=== PATIENT | female | born 1985 | race Two or more races ===

== ENCOUNTER 2016-05-01 12:31 | Emergency (ER) | payer MEDICAID ==
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
[2016-05-01] MEDS ORDERED: IBUPROFEN 600 MG TABLET PO ONE (13:29)
[2016-05-01 20:51] VITALS: BP 116/54
== END 2016-05-01 20:50 | disposition home or self-care (01) ==
LOC: ER 12:31
DX: S30.1XXA Contusion of abdominal wall, initial encounter (principal); S50.312A Abrasion of left elbow, initial encounter; S70.212A Abrasion, left hip, initial encounter; M54.9 Dorsalgia, unspecified; K13.79 Other lesions of oral mucosa; Y04.2XXA Assault by strike against or bumped into by another person, initial encounter
CPT/HCPCS: 99284; 73080; 73502; J3490

== ENCOUNTER 2018-01-23 20:58 | Emergency (ER) | payer MEDICAID ==
--- NOTE | 2018-01-23 21:33 | RADIOLOGY REPORT (SQ) ---
EXAM DESCRIPTION: XR FOOT 3 OR MORE VIEWS COMPLETED DATE/TME: 01/23/2018 21:05 CLINICAL HISTORY: 32 years, Female, pain Findings: Bony alignment is anatomic. No fracture or dislocation. Mild soft tissue swelling adjacent to the fifth MTP joint. IMPRESSION: No fracture.
[2018-01-24] MEDS ORDERED: IBUPROFEN 600 MG TABLET PO ONE (00:59)
--- NOTE | 2018-01-24 01:03 | ER Document Report ---
HPI - HPI Patient complains to provider of: Toe injury Pain Level: 4 Context: Patient is a 32-year-old female who states on Tuesday she was walking when she accidentally stubbed her right entire foot against a dresser. Patient states she has had increased pain and swelling to the middle digit of her right foot since then and has had increased pain. Patient denies hitting her head, neck, back or any pain in all Past medical history: None Medications: None allergies: Mushrooms - REPRODUCTIVE Reproductive: DENIES: : - MUSCULOSKELETAL Musculoskeletal: REPORTS: Extremity pain - rt foot Past Medical History - General Information source: Patient - Social History Smoking Status: Never Smoker Chew tobacco use (# tins/day): No Frequency of alcohol use: None Drug Abuse: None Lives with: Family Family History: Reviewed & Not Pertinent Patient has suicidal ideation: No Patient has homicidal ideation: No Renal/ Medical History: Denies: Hx Peritoneal Dialysis Psychiatric Medical History: Reports: Hx Depression - Immunizations Hx Diphtheria, Pertussis, Tetanus Vaccination: Yes Vertical Provider Document - CONSTITUTIONAL Agree With Documented VS: Yes Notes: GENERAL: Alert, interacts well. No acute distress. HEAD: Normocephalic, atraumatic. EYES: Pupils equal, round, and reactive to light. Extraocular movements intact. ENT: Oral mucosa moist, tongue midline. NECK: Full range of motion. Supple. Trachea midline. LUNGS: Clear to auscultation bilaterally, no wheezes, rales, or rhonchi. No respiratory distress. HEART: Regular rate and rhythm. No murmur ABDOMEN: Soft, non-tender. Non-distended. Bowel sounds present in all 4 quadrants. EXTREMITIES: Moves all 4 extremities spontaneously. No edema, normal radial and dorsalis pedis pulses bilaterally. Ecchymosis noted right middle toe into the distal foot at the base of the right middle toe. Right cap refill less than 2 seconds all 5 distal extremities. Besides ecchymosis no swelling or obvious deformity noted. BACK: no cervical, thoracic, lumbar midline tenderness. No saddle anesthesia, normal distal neurovascular exam. NEUROLOGICAL: Alert and oriented x3. Normal speech. cranial nerves II through XII grossly intact PSYCH: Normal affect, normal mood. SKIN: Warm, dry, normal turgor. - INFECTION CONTROL TRAVEL OUTSIDE OF THE [place] IN LAST 30 DAYS: No Course - Re-evaluation Re-evalutation: 01/24/18 01:01 Discussed x-ray results with patient at bedside. Discussed RICE treatment. Discussed need to follow-up with primary care provider and return precautions. - Vital Signs Vital signs: Temp Pulse Resp BP Pulse Ox 98.2 F 74 16 130/88 H 100 01/23/18 21:10 01/23/18 21:10 01/23/18 21:10 01/23/18 21:10 01/23/18 21:10 Discharge - Discharge Clinical Impression: Toe injury Qualifiers: Encounter type: initial encounter Laterality: right Qualified Code(s): S99.921A - Unspecified injury of right foot, initial encounter Condition: Stable Disposition: HOME, SELF-CARE Instructions: Contusion ([facility]) Additional Instructions: Your x-ray results are negative at this time. As we discussed you should rest the area, apply ice, compression, and elevation the healing process. Please return to the emergency room for any other worsening symptoms. Referrals: MICHAEL LEVY MD [Primary Care Provider] - Follow up as needed
[2018-01-24 01:27] VITALS: BP 100/70
== END 2018-01-24 01:27 | disposition home or self-care (01) ==
LOC: ER 20:58
DX: S99.921A Unspecified injury of right foot, initial encounter (principal); M79.671 Pain in right foot; W22.03XA Walked into furniture, initial encounter
CPT/HCPCS: 99283; 73630; J3490

== ENCOUNTER 2018-05-15 10:40 | Emergency (ER) | payer MEDICAID ==
[2018-05-15] MEDS ORDERED: ASPIRIN 81 MG TABLET, CHEWABLE PO ONE (12:34)
[2018-05-15] MEDS ORDERED: METOCLOPRAMIDE HCL ORAL SOLN 10 MG/10 ML UDCUP PO ONE (12:37)
[2018-05-15] MEDS ORDERED: LIDOCAINE 2% VISCOUS SOLN 20 ML UDCUP PO ONE (12:37)
[2018-05-15] MEDS ORDERED: MAG HYDROX/AL HYDROX/SIMETH SUSP 30 ML UDCUP PO ONE (12:37)
--- NOTE | 2018-05-15 12:40 | ER Document Report ---
ED General - General Chief Complaint: Chest Pain Stated Complaint: CHEST PAIN Time Seen by Provider: 05/15/18 12:28 Primary Care Provider: ALLAN SAMPSON MD [NO LOCAL MD] - Follow up tomorrow MICHAEL LEVY MD [EMERITUS] - Follow up tomorrow Mode of Arrival: Ambulatory Information source: Patient, [facility] Records Notes: 33-year-old female with no reported past medical history presents with complaint of chest pain. Patient states pain started 1 day prior to arrival. Pain is located in the epigastric and substernal area and described as a dull constant pressure with intermittent sharp pain that causes her to catch her breath. Patient's states pain has radiated to her shoulder. She denies any associated nausea, diaphoresis, lightheadedness, prior similar symptoms, fever, chills, diarrhea, dysuria, hematuria, chance of . Patient denies injury to her chest. She denies prior history of PE, DVT, recent surgery, estrogen use. TRAVEL OUTSIDE OF THE [place] IN LAST 30 DAYS: No - HPI Onset: Yesterday Onset/Duration: Gradual, Constant, Persistent Quality of pain: Pressure, Sharp - Intermittent sharp pain Severity: Mild Associated symptoms: Chest pain, Shortness of breath - Intermittently. denies: Nonproductive cough, Productive cough, Fever, Hurts to breath, Leg swelling, Nausea, Vomiting, Sweating, Weakness Exacerbated by: Deep breathing Relieved by: Denies Similar symptoms previously: No Recently seen / treated by doctor: No - Related Data Allergies/Adverse Reactions: mushroom Allergy (Severe, Uncoded 05/15/18 12:23) Anaphylaxis Past Medical History - General Information source: Patient, [facility] Records - Social History Smoking Status: Never Smoker Frequency of alcohol use: None Drug Abuse: None Lives with: Family Family History: Reviewed & Not Pertinent Patient has suicidal ideation: No Patient has homicidal ideation: No Pulmonary Medical History: Reports: Hx Asthma Renal/ Medical History: Denies: Hx Peritoneal Dialysis Psychiatric Medical History: Reports: Hx Depression - Immunizations Hx Diphtheria, Pertussis, Tetanus Vaccination: Yes Review of Systems - Review of Systems Notes: REVIEW OF SYSTEMS: CONSTITUTIONAL : Denies fever, chills, or sweats. Denies recent illness. Denies weight loss, recent hospitalizations. EENT: Denies visual changes, eye pain. Denies sore throat, oral lesions, difficulty swallowing. CARDIOVASCULAR: Denies chest pain. Denies palpitations. Denies lower extremity edema. RESPIRATORY: Denies cough. Denies shortness of breath, wheezing. GASTROINTESTINAL: Denies abdominal pain or distention. Denies nausea, vomiting, or diarrhea. Denies blood in vomitus, stools, or per rectum. Denies black, tarry stools. Denies constipation. GENITOURINARY: Denies difficulty urinating, painful urination, frequency, blood in urine, or vaginal discharge. MUSCULOSKELETAL: Denies back or neck pain or stiffness. Denies joint pain or swelling. SKIN: Denies rash, lesions or sores. HEMATOLOGIC : Denies easy bruising or bleeding. LYMPHATIC: Denies swollen glands. NEUROLOGICAL: Denies confusion or altered mental status. Denies loss of consciousness. Denies dizziness or lightheadedness. Denies headache. Denies weakness or paralysis. Denies problems difficulty with ambulation, slurred speech. Denies sensory loss, numbness, or tingling. Denies seizures. PSYCHIATRIC: Denies anxiety or stress. Denies depression, suicidal ideation, or homicidal ideation. Denies visual or auditory hallucinations. PHYSICAL EXAMINATION: GENERAL: Well-appearing, well-nourished and in no acute distress. HEAD: Atraumatic, normocephalic. EYES: Pupils equal round and reactive to light, extraocular movements intact, conjunctiva are normal. ENT: Nares patent, oropharynx clear without exudates. Moist mucous membranes. NECK: Normal range of motion, supple without lymphadenopathy LUNGS: Breath sounds clear to auscultation bilaterally and equal. No wheezes rales or rhonchi. HEART: Regular rate and rhythm without murmurs ABDOMEN: Soft, nontender, nondistended abdomen. No guarding, no rebound. No masses appreciated. Female : deferred Musculoskeletal: Normal range of motion, no pitting or edema. No cyanosis. NEUROLOGICAL: Cranial nerves grossly intact. Normal speech, normal gait. Normal sensory, motor exams PSYCH: Normal mood, normal affect. SKIN: Warm, Dry, normal turgor, no rashes or lesions noted. Physical Exam - Vital signs Vitals: Temp Pulse Resp BP Pulse Ox 98.4 F 100 16 110/78 100 05/15/18 10:51 05/15/18 10:51 05/15/18 10:51 05/15/18 10:51 05/15/18 10:51 Course - Re-evaluation Re-evalutation: 05/15/18 20:10 Laboratory 05/15/18 05/15/18 05/15/18 14:00 14:00 14:00 WBC 7.5 RBC 4.60 Hgb 13.6 Hct 41.3 MCV 90 MCH 29.6 MCHC 32.9 RDW 13.8 Plt Count 235 Seg Neutrophils % 62.9 Lymphocytes % 28.2 Monocytes % 5.2 Eosinophils % 2.6 Basophils % 1.1 Absolute Neutrophils 4.7 Absolute Lymphocytes 2.1 Absolute Monocytes 0.4 Absolute Eosinophils 0.2 Absolute Basophils 0.1 D-Dimer Sodium Cancelled Potassium Cancelled Chloride Cancelled Carbon Dioxide Cancelled Anion Gap Cancelled BUN Cancelled Creatinine Cancelled Est GFR ( Amer) Cancelled Est GFR (Non-Af Amer) Cancelled Glucose Cancelled Calcium Cancelled Total Bilirubin Cancelled Direct Bilirubin Cancelled Neonat Total Bilirubin Cancelled Neonat Direct Bilirubin Cancelled Neonat Indirect Bili Cancelled AST Cancelled ALT Cancelled Alkaline Phosphatase Cancelled Troponin I Cancelled Total Protein Cancelled Albumin Cancelled Lipase Cancelled Urine Color Urine Appearance Urine pH Ur Specific [place] Urine Protein Urine Glucose (UA) Urine Ketones Urine Blood Urine Nitrite Urine Bilirubin Urine Urobilinogen Ur Leukocyte Esterase Urine WBC (Auto) Urine RBC (Auto) Squamous Epi Cells Auto Urine Mucus (Auto) Urine Ascorbic Acid Urine HCG, Qual 05/15/18 05/15/18 05/15/18 14:55 14:55 15:45 WBC RBC Hgb Hct MCV MCH MCHC RDW Plt Count Seg Neutrophils % Lymphocytes % Monocytes % Eosinophils % Basophils % Absolute Neutrophils Absolute Lymphocytes Absolute Monocytes Absolute Eosinophils Absolute Basophils D-Dimer < 0.27 Sodium Potassium Chloride Carbon Dioxide Anion Gap BUN Creatinine Est GFR ( Amer) Est GFR (Non-Af Amer) Glucose Calcium Total Bilirubin Direct Bilirubin Neonat Total Bilirubin Neonat Direct Bilirubin Neonat Indirect Bili AST ALT Alkaline Phosphatase Troponin I < 0.012 Total Protein Albumin Lipase Urine Color YELLOW Urine Appearance SLIGHTLY-CLOUDY Urine pH 7.0 Ur Specific [place] 1.021 Urine Protein NEGATIVE Urine Glucose (UA) NEGATIVE Urine Ketones NEGATIVE Urine Blood NEGATIVE Urine Nitrite NEGATIVE Urine Bilirubin NEGATIVE Urine Urobilinogen NEGATIVE Ur Leukocyte Esterase TRACE H Urine WBC (Auto) 8 Urine RBC (Auto) 2 Squamous Epi Cells Auto 3 Urine Mucus (Auto) OCC Urine Ascorbic Acid NEGATIVE Urine HCG, Qual NEGATIVE 05/15/18 15:45 WBC RBC Hgb Hct MCV MCH MCHC RDW Plt Count Seg Neutrophils % Lymphocytes % Monocytes % Eosinophils % Basophils % Absolute Neutrophils Absolute Lymphocytes Absolute Monocytes Absolute Eosinophils Absolute Basophils D-Dimer Sodium 141.7 Potassium 4.5 Chloride 106 Carbon Dioxide 25 Anion Gap 11 BUN 14 Creatinine 0.84 Est GFR ( Amer) > 60 Est GFR (Non-Af Amer) > 60 Glucose 92 Calcium 9.2 Total Bilirubin 0.5 Direct Bilirubin 0.2 Neonat Total Bilirubin Not Reportable Neonat Direct Bilirubin Not Reportable Neonat Indirect Bili Not Reportable AST 18 ALT 23 Alkaline Phosphatase 52 Troponin I Total Protein 7.1 Albumin 4.6 Lipase 107.5 Urine Color Urine Appearance Urine pH Ur Specific [place] Urine Protein Urine Glucose (UA) Urine Ketones Urine Blood Urine Nitrite Urine Bilirubin Urine Urobilinogen Ur Leukocyte Esterase Urine WBC (Auto) Urine RBC (Auto) Squamous Epi Cells Auto Urine Mucus (Auto) Urine Ascorbic Acid Urine HCG, Qual Chest X-Ray 05/15/18 12:36 IMPRESSION: NO ACUTE RADIOGRAPHIC FINDING IN THE CHEST. Temp Pulse Resp BP Pulse Ox 98.6 F 92 15 115/77 100 05/15/18 17:07 05/15/18 17:07 05/15/18 17:07 05/15/18 17:07 05/15/18 17:07 33-year-old female with no reported past medical history presents with complaint of chest pain. Patient states pain started 1 day prior to arrival. Pain is located in the epigastric and substernal area and described as a dull constant pressure with intermittent sharp pain that causes her to catch her breath. Patient's states pain has radiated to her shoulder. She denies any associated nausea, diaphoresis, lightheadedness, prior similar symptoms, fever, chills, diarrhea, dysuria, hematuria, chance of . Patient denies injury to her chest. She denies prior history of PE, DVT, recent surgery, estrogen use. Vital signs reviewed and within normal limits upon arrival. EKG was obtained and showed the patient be in normal sinus rhythm. Patient is PERC negative. CBC, CMP, d-dimer, troponin are within normal limits. Patient does report relief of chest pain after receiving a GI cocktail. HEART Score: History-0 ECG-0 Age-0 Risk Factors-0 Troponin-0 Total: 0 If HEART score is = 3 AND both troponin measurements are normal, the 30 day risk of a major adverse cardiac event (all-cause mortality, myocardial infarction or need for coronary revascularization) is < 1% (Sensitivity 100%, NPV 100%). Chest pain in a patient without evidence of cardiac or other serious etiology on workup today. I discussed with patient that, based on their age, risk factors and emergency department testing today, the likelihood that their symptoms are related to a heart attack is very low (estimated risk of heart attack or over the next 30 days of less than 1%). The patient demonstrates decision making capacity and has verbalized an understanding of these risks to me. Based on this, the patient has chosen to follow-up as an outpatient. Usual chest pain return precautions reviewed. The patient states understanding and agreement with this plan. 05/15/18 20:11 Patient was evaluated and treated as appropriate for the patient's presenting symptoms and complaint, with consideration of any critical or life threatening conditions that may be associated with their obtained history and exam as noted above. All results were discussed with patient . Patient provided the opportunity to ask questions, and express concerns. Patient was educated on tr eatments based on their presumed diagnosis as noted above. At this time we will discharge the patient with return precautions and follow-up recommendations. Verbal discharge instructions given a the bedside. Medication warnings reviewed. Patient is in agreement with this plan and has verbalized understanding of return precautions. After careful consideration I feel that that patient can be safely discharged from the emergency department, they were advised to followup with a primary care physician in 2-3 days. Dictation on this chart was performed using voice recognition software and may result in unintended grammatical, spelling, syntax or errors. - Vital Signs Vital signs: Temp Pulse Resp BP Pulse Ox 98.6 F 92 15 115/77 100 05/15/18 17:07 05/15/18 17:07 05/15/18 17:07 05/15/18 17:07 05/15/18 17:07 - Laboratory Result Diagrams: 05/15/18 14:00 05/15/18 15:45 Laboratory results interpreted by me: 05/15/18 14:55 Ur Leukocyte Esterase TRACE H - Diagnostic Test Radiology reviewed: Image reviewed, Reports reviewed - EKG Interpretation by Me EKG shows normal: Sinus rhythm Rate: Normal Rhythm: NSR When compared to previous EKG there are: Previous EKG unavailable Discharge - Discharge Clinical Impression: Trapezius muscle spasm Chest pain Qualifiers: Chest pain type: unspecified Qualified Code(s): R07.9 - Chest pain, unspecified Condition: Good Disposition: HOME, SELF-CARE Instructions: Chest Pain of Unclear Cause ([facility]), Neck Injury (Cervical Strain) ([facility]), Reflux Disease (GERD) ([facility]) Additional Instructions: You were seen today for chest pain. The exact cause of your pain is unclear. However, based on your cardiac enzyme testing, chest x-ray, and EKG it does not appear that it is from an immediately life-threatening cause at this time. Although your testing here is normal is critical that you follow-up with your primary care physician for continued evaluation of this chest pain and possible stress testing. I recommended you see your physician within the next 24-48 hours to be evaluated for consideration of a stress test. Please return to emergency department immediately if you have worsening of your chest pain, shortness of breath, vomiting, become unable to exert yourself due to pain or difficulty breathing, you pass out, or have any pain that radiates into your arms, jaw, or back. Please also return if you have any additional symptoms that are concerning to you. Prescriptions: Cyclobenzaprine HCl [Flexeril 10 mg Tablet] 10 mg PO TIDP PRN #15 tab PRN Reason: Sucralfate [Carafate 1 gm Tablet] 1 gm PO ACHS #14 tablet Referrals: MICHAEL LEVY MD [EMERITUS] - Follow up tomorrow ALLAN SAMPSON MD [NO LOCAL MD] - Follow up tomorrow
--- NOTE | 2018-05-15 13:04 | RADIOLOGY REPORT (SQ) ---
EXAM DESCRIPTION: CHEST 2 VIEWS COMPLETED DATE/TIME: 05/15/2018 12:52 pm REASON FOR STUDY: chest pain COMPARISON: None. EXAM PARAMETERS: NUMBER OF VIEWS: two views TECHNIQUE: Digital Frontal and Lateral radiographic views of the chest acquired. RADIATION DOSE: NA LIMITATIONS: none FINDINGS: LUNGS AND PLEURA: No opacities, masses or pneumothorax. No pleural effusion. MEDIASTINUM AND HILAR STRUCTURES: No masses or contour abnormalities. HEART AND VASCULAR STRUCTURES: Heart normal size. No evidence for failure. BONES: No acute findings. HARDWARE: None in the chest. OTHER: No other significant finding. IMPRESSION: NO ACUTE RADIOGRAPHIC FINDING IN THE CHEST. TECHNICAL DOCUMENTATION: JOB ID: [id number] [employer]- All Rights Reserved Reading location - IP/workstation name: [email or web address]
[2018-05-15 14:31] LABS: ABSOLUTE BASOPHILS # (AUTO) 0.1 10^3/uL (0.0-0.2); ABSOLUTE EOSINOPHILS # (AUTO) 0.2 10^3/uL (0.0-0.6); ABSOLUTE LYMPHOCYTES (AUTO) 2.1 10^3/uL (0.5-4.7); ABSOLUTE MONOCYTES (AUTO) 0.4 10^3/uL (0.1-1.4); ABSOLUTE NEUT (AUTO) 4.7 10^3/uL (1.7-8.2); BASOPHILS % (AUTO) 1.1 % (0-2); EOSINOPHILS % (AUTO) 2.6 % (0-6); HEMATOCRIT 41.3 % (36.0-47.0); HEMOGLOBIN 13.6 g/dL (12.0-15.5); LYMPHOCYTES % (AUTO) 28.2 % (13-45); MEAN CORPUSCULAR HEMOGLOBIN 29.6 pg (27.0-33.4); MEAN CORPUSCULAR HGB CONC 32.9 g/dL (32.0-36.0); MEAN CORPUSCULAR VOLUME 90 fl (80-97); MONOCYTES % (AUTO) 5.2 % (3-13); PLATELET COUNT 235 10^3/uL (150-450); RED CELL DISTRIBUTION WIDTH 13.8 % (11.5-14.0); SEGMENTED NEUTROPHILS % (AUTO) 62.9 % (42-78); TOTAL CELLS COUNTED % (AUTO) 100 %; WHITE BLOOD COUNT 7.5 10^3/uL (4.0-10.5)
[2018-05-15 16:20] LABS: ALANINE AMINOTRANSFERASE 23 U/L (9-52); ALBUMIN 4.6 g/dL (3.5-5.0); ALKALINE PHOSPHATASE 52 U/L (38-126); ANION GAP 11 (5-19); ASPARTATE AMINO TRANSFERASE 18 U/L (14-36); BILIRUBIN,DIRECT 0.2 mg/dL (0.0-0.4); BILIRUBIN,TOTAL 0.5 mg/dL (0.2-1.3); BLOOD UREA NITROGEN 14 mg/dL (7-20); CALCIUM 9.2 mg/dL (8.4-10.2); CARBON DIOXIDE 25 mmol/L (22-30); CHLORIDE 106 mmol/L (98-107); GLUCOSE 92 mg/dL (75-110); LIPASE 107.5 U/L (23-300); POTASSIUM 4.5 mmol/L (3.6-5.0); SODIUM 141.7 mmol/L (137-145); TOTAL PROTEIN 7.1 g/dL (6.3-8.2)
[2018-05-15] MEDS ORDERED: LIDOCAINE 5% (700 MG) TRANSDERMAL ADH..PATCH TP ONE (16:38)
[2018-05-15 17:10] VITALS: BP 115/77
[2018-05-15 17:32] LABS: APPEARANCE,URINE SLIGHTLY-CLOUDY; BILIRUBIN,URINE NEGATIVE (NEGATIVE); COLOR,URINE YELLOW; GLUCOSE, URINE NEGATIVE (NEGATIVE); KETONES,URINE NEGATIVE (NEGATIVE); LEUKOCYTE ESTERASE,URINE TRACE (NEGATIVE); NITRITE,URINE NEGATIVE (NEGATIVE); PROTEIN,URINE NEGATIVE (NEGATIVE); URINE SPECIFIC GRAVITY 1.021; UROBILINOGEN,URINE NEGATIVE mg/dL (<2.0)
--- NOTE | 2018-05-17 10:17 | EKG REPORT ---
SEVERITY:- NORMAL ECG - SINUS RHYTHM : Confirmed by: Leena Ahumada 17-May-2018 10:16:28
== END 2018-05-15 17:09 | disposition home or self-care (01) ==
LOC: ER 10:40
DX: M62.830 Muscle spasm of back (principal); R07.9 Chest pain, unspecified; R10.13 Epigastric pain
CPT/HCPCS: 93005; 99284; 36415; 83690; 85025; 81025; 80053; 81001; 84484; 85379; 71046; 93010; J3490 ×4